=== PATIENT | female | born 1990 | race Caucasian/White ===

== ENCOUNTER 2021-02-05 09:33 | Emergency (ER) | payer OTHER ==
[~2021-02-05] VITALS: Ht 172.7 cm; Wt 113.6 kg
[2021-02-05 09:48] VITALS: TEMP 97.5
[2021-02-05 10:49] LABS: BASO % 0.5 % (0.0-2.0); EOS % 0.3 % (0-4.0); GRAN # 5.8 (1.4-6.5); GRAN % 79.7 % (42.2-75.2); HEMOGLOBIN 14.8 g/dl (12.5-16.0); LYMPH # 0.4 (1.2-3.4); LYMPH % 5.9 % (20.0-51.0); MEAN CELL VOLUME 95 fl (80.0-100.0); MEAN CORPUSCULAR HEMOGLOBIN 32 pg (27.0-31.0); MEAN CORPUSCULAR HGB CONC 34 g/dl (33.0-37.0); MEAN PLATELET VOLUME 10.5 fl (7.4-10.4); MONO % 13.3 % (1.7-9.3); PLATELET COUNT 275 K/mm3 (130-400); RED BLOOD COUNT 4.65 M/mm3 (4.10-5.30); REDCELL DISTRIBUTION WIDTH-CV 12.1 % (11.5-14.5)
[2021-02-05 10:57] LABS: ALANINE AMINOTRANSFERASE 45 U/L (4-34); ALBUMIN 4.2 gm/dL (3.5-5.0); ALKALINE PHOSPHATASE 61 U/L (50-136); ANION GAP 12 mmol/L (7-16); AST,SGOT 36 U/L (15-37); BILIRUBIN,TOTAL 0.3 mg/dL (0.0-1.0); BLOOD UREA NITROGEN 12 mg/dL (7-17); CALCIUM 8.9 mg/dL (8.4-10.2); CARBON DIOXIDE 21 mmol/L (22-30); CHLORIDE 100 mmol/L (98-107); CREATININE, serum 0.59 (0.52-1.25); GLUCOSE 358 mg/dL (74-106); POTASSIUM 4.5 mmol/L (3.4-5.0); SODIUM 132 mmol/L (137-145); TOTAL PROTEIN 7.5 gm/dL (6.4-8.2)
[2021-02-05 11:22] LABS: TROPONIN-I < 0.012 ng/mL (0.000-0.035)
[2021-02-05 11:45] LABS: COLLECTION METHOD CLEAN CATCH
[2021-02-05 11:59] LABS: MUCOUS Present /lpf; PH 6 (5-8); URINE APPEARANCE Hazy; URINE BACTERIA None Seen /hpf; URINE BILIRUBIN Negative (NEGATIVE); URINE BLOOD 1+ (NEGATIVE); URINE COLOR Yellow; URINE GLUCOSE 3+ (NEGATIVE); URINE KETONE Negative (NEGATIVE); URINE LEUKOCYTE ESTERASE Negative (NEGATIVE); URINE NITRATE Negative (NEGATIVE); URINE PROTEIN(semi-quant) Negative (NEGATIVE); URINE UROBILINOGEN Negative (NEGATIVE)
[2021-02-05] MEDS ORDERED: GLUCOPHAGE500 MG/TAB PO (13:25)
[2021-02-05 13:44] VITALS: BP 108/70; PULSE 95
== END 2021-02-05 13:44 | disposition home or self-care (01) ==
LOC: COL.ER 09:33
PROVIDERS: Physician Assistant
DX: E11.65 Type 2 diabetes mellitus with hyperglycemia (principal); Z88.6 Allergy status to analgesic agent
CPT/HCPCS: J7030